=== PATIENT | male | born 1945 | race African-American/Black ===

== ENCOUNTER 2016-11-05 13:40 | Emergency (ER) | payer OTHER ==
[~2016-11-05] VITALS: Ht 175.3 cm; Wt 95.2 kg
[2016-11-05 14:41] LABS: HEMATOCRIT 38.9 % (38.0-50.0); MCH 29.3 PG (29.0-34.0); MCHC 33.4 G/DL (30.0-36.0); MCV 87.8 FL (86-99); MEAN PLAT.VOLUME 8.4 uM^3 (9.0-12.4); PLATELET COUNT 347 K/uL (156-360); RBC DIS.WIDTH-CV 13.8 % (11.8-14.6); RBC DIS.WIDTH-SD 44.8 % (39-53); RED BLOOD COUNT 4.43 M/uL (4.00-5.50); WHITE BLOOD COUNT 7.5 K/uL (4.1-10.2)
[2016-11-05 14:50] LABS: CHLORIDE 105 mEq/L (99-109); POTASSIUM 4.2 mEq/L (3.7-5.4); SODIUM 137 mEq/L (136-147)
[2016-11-05 14:51] LABS: GLUCOSE 107 mg/dL (70-99)
[2016-11-05 14:53] LABS: ANION GAP 9 MEQ/L (2-14)
[2016-11-05 14:55] LABS: GFR ESTIMATE (CALCULATED) > 59 mL/min/
[2016-11-05 14:56] LABS: UREA NITROGEN (BUN) 14 mg/dL (9-23)
[2016-11-05 15:02] LABS: TROP-I INTERPRETATION NEGATIVE; TROPONIN-I < 0.01 ng/mL (0.0-0.30)
[2016-11-05] MEDS ORDERED: LORTAB 10-3251 EACH PO (21:03)
[2016-11-05] MEDS ORDERED: ULTRAM50 MG PO (21:03)
[2016-11-05 21:45] VITALS: BP 178/73
== END 2016-11-05 21:45 | disposition home or self-care (01) ==
LOC: EME 13:40
DX: R07.81 Pleurodynia (principal); Z87.891 Personal history of nicotine dependence
CPT/HCPCS: 71020; 71275; 74177; 80048; 84484; 85027; 93005; 99281; 99285

== ENCOUNTER 2017-01-22 17:41 | Emergency (ER) | payer OTHER ==
[~2017-01-22 17:41] MED LIST: LORTAB 10-3251 EACH PO; ULTRAM50 MG PO
== END 2017-01-22 18:40 | disposition left against medical advice (07) ==
LOC: EME 17:41
DX: Z53.21 Procedure and treatment not carried out due to patient leaving prior to being seen by health care provider (principal)

== ENCOUNTER 2017-01-24 13:22 | Emergency (ER) | payer OTHER ==
[~2017-01-24] VITALS: Ht 175.3 cm; Wt 97.6 kg
[2017-01-24] MEDS ORDERED: CASODEX50 MG PO (15:04)
[2017-01-24 15:25] VITALS: BP 148/99
== END 2017-01-24 15:25 | disposition home or self-care (01) ==
LOC: EME 13:22
DX: Z76.0 Encounter for issue of repeat prescription (principal); C79.51 Secondary malignant neoplasm of bone; C61 Malignant neoplasm of prostate; Z87.891 Personal history of nicotine dependence
CPT/HCPCS: 99281; 99283

== ENCOUNTER 2017-03-06 16:17 | Emergency (ER) | payer OTHER ==
[~2017-03-06] VITALS: Ht 175.3 cm; Wt 97.2 kg
[~2017-03-06 16:17] MED LIST changes: +CASODEX50 MG PO
[2017-03-06] MEDS ORDERED: VALIUM5 MG PO (16:54)
[2017-03-06] MEDS ORDERED: CASODEX50 MG PO (16:54)
[2017-03-06 17:27] VITALS: BP 110/90
== END 2017-03-06 17:28 | disposition home or self-care (01) ==
LOC: EME 16:17
DX: G89.29 Other chronic pain (principal); M54.9 Dorsalgia, unspecified; M79.606 Pain in leg, unspecified; C61 Malignant neoplasm of prostate; K21.9 Gastro-esophageal reflux disease without esophagitis; Z88.5 Allergy status to narcotic agent; Z88.8 Allergy status to other drugs, medicaments and biological substances
CPT/HCPCS: 99281; 99284